=== PATIENT | male | born 1955 | race Hispanic/Latino ===

== ENCOUNTER 2017-12-31 12:50 | Emergency (ER) | payer BC ==
[2017-12-31 13:03] VITALS: BMI 23.7
[2017-12-31] MEDS ORDERED: Sodium Chloride 0.9% 1,000 ML IV STA ×2 (13:11→14:10)
[2017-12-31] MEDS ORDERED: Sodium Chloride 0.9% 1,000 ML ONE ×2 (13:16→14:28)
[2017-12-31 13:27] LABS: BASO # 0.1 K/uL (0.0-0.2); BASO % 0.5 % (0.0-2.0); HEMOGLOBIN 16.8 g/dL (12.0-18.0); LYMPH # 0.5 K/uL (1.0-4.3); LYMPH % 3.9 % (20.0-40.0); MEAN CELL VOLUME 93.2 fL (80.0-94.0); MEAN CORPUSCULAR HEMOGLOBIN 32.1 pg (27.0-31.0); MEAN CORPUSCULAR HGB CONC 34.4 g/dL (33.0-37.0); MEAN PLATELET VOLUME 7.5 fL (7.2-11.7); MONO # 0.7 K/uL (0.0-0.8); MONO % 5.7 % (0.0-10.0); NEUT # 11.5 K/uL (1.8-7.0); NEUT % 89.9 % (50.0-75.0); PLATELET COUNT 269 K/uL (130-400); RBC 5.24 Mil/uL (4.40-5.90); RED CELL DISTRIBUTION WIDTH 13.6 % (11.5-14.5); WHITE BLOOD COUNT 12.8 K/uL (4.8-10.8)
--- NOTE | 2017-12-31 13:27 | C.PDOC ---
History Of Present Illness 62 year old male, with no PMHx, presents to the emergency department with general weakness x2 hours. Patient states he was running in the [place] half marathon when, while running, he began to feel lightheaded, weak with bilateral arm numbness, and right calf cramping. Otherwise patient denies fever , chills, chest pain, vomiting, or trauma. Time Seen by Provider: 12/31/17 12:54 Chief Complaint (Nursing): Dizziness/Lightheaded History Per: Patient History/Exam Limitations: no limitations Onset/Duration Of Symptoms: Hrs Current Symptoms Are (Timing): Still Present Past Medical History Reviewed: Historical Data, Nursing Documentation, Vital Signs Vital Signs: Last Vital Signs Temp 97.6 F 12/31/17 15:15 Pulse 61 12/31/17 15:15 Resp 17 12/31/17 15:15 BP 122/78 12/31/17 15:15 Pulse Ox 98 12/31/17 15:15 Family History: States: No Known Family Hx - Social History Hx Alcohol Use: No Hx Substance Use: No - Immunization History Hx Tetanus Toxoid Vaccination: Yes Hx Influenza Vaccination: No Hx Pneumococcal Vaccination: No Review Of Systems Except As Marked, All Systems Reviewed And Found Negative. Constitutional: Negative for: Fever, Chills Cardiovascular: Positive for: Light Headedness. Negative for: Chest Pain Gastrointestinal: Negative for: Vomiting Musculoskeletal: Positive for: Other (bilateral arm numbness; R calf cramping) Neurological: Positive for: Weakness Physical Exam - Physical Exam Additional Physical Exam Comments: Constitutional: No acute distress. Head: Normocephalic. Atraumatic. Eyes: PERRL. ENT: Moist mucous membranes. Neck: Supple. Cardiovascular: Regular rate. Radial pulse 2+ bilaterally. Chest: No tenderness. Respiratory: Clear to auscultation bilaterally. GI: Soft. Nontender. Nondistended. Back: No CVA tenderness. Musculoskeletal: No calf tenderness. No edema. Skin: No rash. Neurologic: Alert, no focal deficit. ED Course And Treatment - Laboratory Results Result Diagrams: 12/31/17 13:16 12/31/17 13:16 O2 Sat by Pulse Oximetry: 100 (RA) Pulse Ox Interpretation: Normal Medical Decision Making Medical Decision Making: Impression: Weakness Plan: -EKG -Labs -Urinalysis -IV Fluids -Toradol Patient states he feels much better after treatment. Copy of labs given to follow up with PMD. Disposition - Disposition Disposition: HOME/ ROUTINE Disposition Time: 15:12 Condition: STABLE Instructions: Dehydration, Adult (DC) Forms: [employer] (Portuguese) - Clinical Impression Clinical Impression: Dehydration after exertion - Scribe Statement The provider has reviewed the documentation as recorded by the Jani Apodaca Provider Attestation: All medical record entries made by the Imtiazibpatricio were at my direction and personally dictated by me. I have reviewed the chart and agree that the record accurately reflects my personal performance of the history, physical exam, medical decision making, and the department course for this patient. I have also personally directed, reviewed, and agree with the discharge instructions and disposition.
[2017-12-31 13:42] LABS: ALB/GLOB RATIO 1.9 (1.0-2.1); ALBUMIN 5.5 g/dL (3.5-5.0); ALT/SGPT 27 U/L (21-72); AST/SGOT 31 U/L (17-59); BLOOD UREA NITROGEN 23 mg/dL (9-20); CALCIUM 11.2 mg/dl (8.6-10.4); GFR NON-AFRICAN AMERICAN 41
[2017-12-31 13:53] LABS: CK-MB 1.44 ng/mL (0.0-3.38)
[2017-12-31 14:02] LABS: BANDS 1 % (0-2); EOSINOPHIL 1 % (0-4); LYMPHOCYTE 7 % (20-40); MONOCYTE 6 % (0-10); NEUTROPHIL 85 % (50-75); PLATELET ESTIMATE NORMAL (NORMAL); TOTAL CELLS COUNTED 100
[2017-12-31 14:36] LABS: SQUAMOUS EPITHIAL 1 /hpf (0-5); URINE BACTERIA RARE (<OCC); URINE BILIRUBIN 1+ (NEGATIVE); URINE BLOOD NEGATIVE (NEGATIVE); URINE CLARITY Hazy (Clear); URINE COLOR Amber (YELLOW); URINE GLUCOSE (UA) NORMAL (Normal); URINE HYALINE CAST >20 /lpf (0-2); URINE LEUKOCYTE ESTERASE TRACE Leu/uL (Negative); URINE PROTEIN 1+ mg/dL (NEGATIVE)
[2017-12-31 15:15] VITALS: BP 122/78; PULSE 61; RESP 17; TEMP 97.6
[2017-12-31 16:08] VITALS: O2SAT 100
--- NOTE | 2018-01-01 19:02 | CARD ---
APPROVED REPORT Date of service: 12/31/2017 EKG Measurement Heart [id number] <Conclusion> Sinus rhythm with marked 1st degree AV block Incomplete right bundle branch block Borderline ECG
== END 2017-12-31 15:35 | disposition home or self-care (01) ==
LOC: C.ER 12:50
DX: E86.0 Dehydration (principal)
CPT/HCPCS: 80053; 81001; 82550; 82553; 84484; 85025; 93005; 96361; 96374; 99285; J1885; J7030